=== PATIENT | female | born 1930 | race Caucasian/White ===

== ENCOUNTER 2016-07-10 08:00 | Outpatient (CLI) | payer MEDICARE, OTHER | END 2016-07-10 23:59 | DX: I10 Essential (primary) hypertension (principal); E03.9 Hypothyroidism, unspecified; E78.2 Mixed hyperlipidemia; Z79.899 Other long term (current) drug therapy ==

== ENCOUNTER 2016-08-22 08:17 | Emergency (ER) | payer MEDICARE, OTHER ==
[2016-08-22] MEDS ORDERED: IOPAMIDOL-300 50 ML VIAL IVP ONE (11:19)
== END 2016-08-22 12:34 | disposition home or self-care (01) ==
DX: B02.9 Zoster without complications (principal); I44.7 Left bundle-branch block, unspecified; R94.31 Abnormal electrocardiogram [ECG] [EKG]; I10 Essential (primary) hypertension; E03.9 Hypothyroidism, unspecified

== ENCOUNTER 2017-02-08 14:01 | Outpatient (CLI) | payer MEDICARE, OTHER | END 2017-02-08 14:02 | disposition critical access hospital (66) | LOC: EMS 14:01 | PROVIDERS: ATTEND Surgery | DX: R55 Syncope and collapse (principal) | CPT/HCPCS: A0425; A0427 ==

== ENCOUNTER 2017-02-08 14:16 | Observation (INO) | payer MEDICARE, OTHER ==
[2017-02-08] MEDS ORDERED: SODIUM CHLORIDE 0.9% 1,000 ML IV ONE (14:41)
[2017-02-08 14:58] LABS: BASOPHILS % (AUTO) 0.4 %; EOSINOPHILS # (AUTO) 0.2 10^3/uL (0.0-0.7); EOSINOPHILS % (AUTO) 1.7 %; HCT - HEMATOCRIT 44.5 % (37.0-47.0); HGB - HEMOGLOBIN 14.9 g/dL (12.0-16.0); LYMPHOCYTES % (AUTO) 38.8 %; MEAN CORPUSCULAR HGB CONC 33.4 g/dL (32.0-36.0); MEAN CORPUSCULAR VOLUME 95.7 fL (81.0-99.0); MONOCYTES # (AUTO) 0.9 10^3/uL (0.0-1.0); MONOCYTES % (AUTO) 8.9 %; NEUTROPHILS # (AUTO) 5.2 10^3/uL (1.5-6.6); NEUTROPHILS % (AUTO) 50.2 %; RED BLOOD COUNT 4.64 10^6/uL (4.20-5.40); RED CELL DISTRIBUTION WIDTH 13.5 % (12.0-15.0); UNCORRECTED WHITE BLOOD COUNT 10.3 x10^3/uL; WHITE BLOOD COUNT 10.3 x10^3/uL (4.8-10.8)
[2017-02-08 15:16] LABS: ALBUMIN/GLOBULIN RATIO 1.4 (1.0-2.2); BILIRUBIN,TOTAL 0.9 mg/dL (0.2-1.0); CALCIUM 9.5 mg/dL (8.5-10.3); POTASSIUM 4.4 mmol/L (3.5-5.0); TOTAL PROTEIN 7.1 g/dL (6.7-8.2)
--- NOTE | 2017-02-08 15:30 | ED Physician Documentation ---
PD HPI SYNCOPE - Stated complaint Stated Complaint: SYNCOPE - Chief complaint Chief Complaint: General - History obtained from History obtained from: Patient, Family, EMS - History of Present Illness Witnessed: Witnessed Timing - onset: Today Duration: Minutes (1) Preceding symptoms: Light headed, Generalized weakness. No: Headache, Vision changes, Chest pain, Palpitations, Diaphoresis, Dyspnea, Abdominal pain, Nausea / vomiting Associated symptoms: No: Seizure, Incontinant of urine, Incontinant of stool, Headache, Vision changes, Chest pain, Palpitations, Diaphoresis Contributing factors: No: Recent med change, Decreased PO intake, Noxious stimulae, Emotional upset, Just stood up, Exertion Injury occurred: Fell, Unknown (slight urinary incontinence). No: Head injury, Neck injury, Bit tongue Pain level max: 0 Pain level now: 0 Similar symptoms before: Has not had sx before Recently seen: Not recently seen - Additional information Additional information: found to be hypotensive with EMS. 86/52 upon arrival. Review of Systems Ten Systems: 10 systems reviewed and negative Constitutional: denies: Fever, Chills Ears: denies: Ear pain Nose: denies: Rhinorrhea / runny nose, Congestion Throat: denies: Sore throat Cardiac: denies: Chest pain / pressure, Palpitations Respiratory: denies: Cough GI: denies: Nausea, Vomiting, Diarrhea : denies: Dysuria, Frequency, Hesitancy Skin: denies: Rash Musculoskeletal: denies: Neck pain, Back pain Neurologic: denies: Focal weakness, Numbness, Confused, Altered mental status, Headache PD PAST MEDICAL HISTORY - Past Medical History Cardiovascular: Hypertension, Arrhythmia Respiratory: None Neuro: None Endocrine/Autoimmune: HyPOthyroidism GI: None 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 : None HEENT: Glaucoma Psych: None Musculoskeletal: None Derm: None - Past Surgical History Past Surgical History: Yes General: Colonoscopy HEENT: Cataracts - Present Medications Home Medications: Ambulatory Orders Medication Instructions Recorded Confirmed Brimonidine Tartrate [Alphagan P] 1 drops EACHEYE TID 05/05/13 02/09/17 Latanoprost [Xalatan] 1 drops EACHEYE QPM 05/05/13 02/09/17 Levothyroxine [Synthroid] 100 mcg PO QDAC 05/05/13 02/08/17 Lisinopril 20 mg PO DAILY 05/05/13 02/08/17 Aspirin Chewable [St Del 162 mg PO DAILY tablet 02/09/17 Aspirin] Dorzolamide/Timolol Ophth Soln 1 drops LEFTEYE BID 02/09/17 02/09/17 [Cosopt] - Allergies Allergies/Adverse Reactions: Allergies Allergy/AdvReac Type Severity Reaction Status Date / Time Latex, Natural Rubber Allergy Severe Edema Verified 08/22/16 08:25 Sulfa (Sulfonamide Allergy Intermediate Hives Verified 08/22/16 08:25 Antibiotics) ciprofloxacin [From Cipro] Allergy Rash Verified 08/22/16 08:25 ciprofloxacin HCl * Allergy Rash Verified 08/22/16 08:25 [From Cipro] valacyclovir [From Valtrex] Allergy Unknown Verified 02/08/17 14:23 - Social History Does the pt smoke?: No Smoking Status: Never smoker Does the pt drink ETOH?: Yes Does the pt have substance abuse?: No - Immunizations Immunizations are current?: Yes PD ED PE NORMAL - Vitals Vital signs reviewed: Yes - General General: Alert and oriented X 3, No acute distress, Well developed/nourished - HEENT HEENT: Atraumatic, PERRL, EOMI, Ears normal, Moist mucous membranes, Pharynx benign - Neck Neck: Supple, no meningeal sign, No bony TTP - Cardiac Cardiac: RRR, Strong equal pulses - Respiratory Respiratory: No respiratory distress, Clear bilaterally - Abdomen Abdomen: Soft, Non tender, Non distended - Back Back: No spinal TTP - Derm Derm: Warm and dry - Extremities Extremities: No edema, No calf tenderness / cord - Neuro Neuro: Alert and oriented X 3, box maker paperboard 2-12 intact, No motor deficit, No sensory deficit, Normal speech - Psych Psych: Normal mood, Normal affect Results - Vitals Vitals: Vital Signs - 24 hr 02/08/17 02/08/17 14:20 16:42 Temperature 36.5 C 36.5 C Heart Rate 95 61 Respiratory 18 15 Rate Blood Pressure 113/68 148/67 H O2 Saturation 90 L 100 Oxygen O2 Source Room air - EKG (time done) 1424 Rate: Rate (enter#) (73) Rhythm: NSR Intervals: Normal KS, LBBB Compare to prior EKG: Unchanged from prior EKG (08/22/16) - Labs Labs: Laboratory Tests 02/08/17 02/08/17 02/08/17 14:53 14:53 14:53 WBC 10.3 RBC 4.64 Hgb 14.9 Hct 44.5 MCV 95.7 MCH 32.0 H MCHC 33.4 RDW 13.5 Plt Count 213 MPV 8.0 Neut # 5.2 Lymph # 4.0 H Anson # 0.9 Eos # 0.2 Baso # 0.0 Absolute Nucleated RBC 0.00 Nucleated RBC % 0.0 Sodium 135 Potassium 4.4 Chloride 98 L Carbon Dioxide 26 Anion Gap 11.0 BUN 16 Creatinine 1.0 Estimated GFR (MDRD) 52 L Glucose 110 H Calcium 9.5 Magnesium Total Bilirubin 0.9 AST 19 ALT 15 Alkaline Phosphatase 62 Troponin I < 0.04 Total Protein 7.1 Albumin 4.2 Globulin 2.9 Albumin/Globulin Ratio 1.4 Triglycerides Cholesterol LDL Cholesterol, Calc VLDL Cholesterol HDL Cholesterol LDL/HDL Ratio Cholesterol/HDL Ratio Lipase 45 TSH Free T4 Free T3 pg/mL 02/08/17 02/08/17 02/08/17 14:53 14:53 14:53 WBC RBC Hgb Hct MCV MCH MCHC RDW Plt Count MPV Neut # Lymph # Anson # Eos # Baso # Absolute Nucleated RBC Nucleated RBC % Sodium Potassium Chloride Carbon Dioxide Anion Gap BUN Creatinine Estimated GFR (MDRD) Glucose Calcium Magnesium 2.1 Total Bilirubin AST ALT Alkaline Phosphatase Troponin I Total Protein Albumin Globulin Albumin/Globulin Ratio Triglycerides Cholesterol LDL Cholesterol, Calc VLDL Cholesterol HDL Cholesterol LDL/HDL Ratio Cholesterol/HDL Ratio Lipase TSH 2.02 Free T4 Free T3 pg/mL 3.10 02/08/17 02/08/17 14:53 14:53 WBC RBC Hgb Hct MCV MCH MCHC RDW Plt Count MPV Neut # Lymph # Anson # Eos # Baso # Absolute Nucleated RBC Nucleated RBC % Sodium Potassium Chloride Carbon Dioxide Anion Gap BUN Creatinine Estimated GFR (MDRD) Glucose Calcium Magnesium Total Bilirubin AST ALT Alkaline Phosphatase Troponin I Total Protein Albumin Globulin Albumin/Globulin Ratio Triglycerides 101 Cholesterol 241 H LDL Cholesterol, Calc 139 H VLDL Cholesterol 20 HDL Cholesterol 82 LDL/HDL Ratio 1.7 Cholesterol/HDL Ratio 2.9 Lipase TSH Free T4 1.21 Free T3 pg/mL - Rads (name of study) cxr Radiology: Prelim report reviewed, EMP read contemporaneously, See rad report ( Cardiomegaly with thoracic aortic tortuosity and calcification. 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 This was while she was standing making lunch in the kitchen. Did not occur after exertion or standing. Ate and drank normally today including breakfast. Daughter was visiting from out of town. Has never had syncope before. She was hypotensive upon arrival with EMS, but this resolved quickly. We will place the patient in observation for further care including continued telemetry monitoring. I discussed the case with Dr. Alvarez, hospitalist who accepts. This document was made in part using voice recognition software. While efforts are made to proofread this document, sound alike and grammatical errors may occur. Departure - Departure Disposition: ED Place in Observation Clinical Impression: Syncope Qualifiers: Syncope type: unspecified Qualified Code(s): R55 - Syncope and collapse Condition: Good Discharge Date/Time: 02/08/17 17:47
--- NOTE | 2017-02-08 16:24 | XRAY Preliminary Report ---
Exam: XR CHEST 1 VIEW IMPRESSION: 1. There is cardiomegaly with thoracic aortic tortuosity and calcification. 2. No acute intrathoracic plain film abnormality. [facility] SITE ID: [id number]
--- NOTE | 2017-02-08 16:26 | XRAY Report ---
EXAM: CHEST RADIOGRAPHY EXAM DATE: 02/08/2017 04:05 PM. CLINICAL HISTORY: Syncope. COMPARISON: 08/22/2016. TECHNIQUE: 1 view. FINDINGS: Lungs/Pleura: Lungs are well-expanded. There is stable reticular opacity within the mid and lower roxie gs. No evidence of acute consolidation or effusion. No pneumothorax. Mediastinum: There is cardiomegaly with thoracic aortic tortuosity. Other: None. IMPRESSION: 1. There is cardiomegaly with thoracic aortic tortuosity and calcification. 2. No acute intrathoracic plain film abnormality. [facility] Referring Provider Line: [phone] SITE ID: [id number]
[2017-02-08] MEDS ORDERED: MORPHINE 2 MG/ML SYRINGE IVP PRN (17:25)
[2017-02-08] MEDS ORDERED: SODIUM CHLORIDE FLUSH 0.9% 10 ML SYRINGE IVP PRN (17:25)
[2017-02-08] MEDS ORDERED: ONDANSETRON ODT 4 MG TABLET TL PRN (17:25)
[2017-02-08 18:22] LABS: BILIRUBIN,URINE NEGATIVE (NEGATIVE)
[2017-02-08 18:22] LABS: CHOL/HDL RATIO 2.9 (<4.4); CHOLESTEROL 241 mg/dL; HDL CHOLESTEROL 82 mg/dL; LDL/HDL RATIO 1.7 (<4.4); TRIGLYCERIDES 101 mg/dL; VLDL CHOLESTEROL 20 mg/dL
[2017-02-08 18:23] LABS: UA w/ MICROSCOPIC CHARGE YES
[2017-02-08 18:30] LABS: UR CULTURE IF IND NOT INDICATED; WBC,URINE >25 /HPF (0-5)
[2017-02-08] MEDS: ASPIRIN CHEW 81 MG TABLET PO SCH (19:09)
--- NOTE | 2017-02-08 19:17 | HISTORY & PHYSICAL EXAMINATION ---
DATE OF ADMISSION: 02/08/2017 CHIEF COMPLAINT: Syncope. HISTORY OF PRESENT ILLNESS: The patient is a very pleasant 86-year-old female who presented to the ER today with a complaint of dizziness and weakness after she was making lunch today. The patient has a significant medical history that does include hypertension, hypothyroidism and glaucoma. The patient states that she was in her usual state of health when, after making lunch this morning, she felt diz zy and weak. She went over to her kitchen table to sit down. The next thing she remembers is standing up and she fell to the ground. the patient described it as "I was just sitting in the chair at the t able and I slid down out of my chair." The patient's daughter happened to be in the kitchen at the [facility] time when the event occurred. The daughter states that mother had stood up and then all of a sudde n, passed out, sat down onto the hospital floor. She became incontinent of urine. When she came aroun d, which was within less than about 10 seconds per the daughter, she noticed her mom was slightly con fused. She states she did not notice any facial droop or slurring of speech. She called 911 for the [employer]. When the paramedics got there, they took her blood pressure and it was 86 systolic. The pa marely states that she had had some coffee for breakfast. She had taken all her a.m. medications but h ad not eaten much that morning. Her blood sugar check was within normal limits. The patient states th at she had similar symptoms back in August, which they thought she might have had a heart problem at gideon t time. She did have an arrhythmia, which the daughter describes as PVCs and some heart palpitations. She cannot remember whether she had an echocardiogram at that time. The patient takes only Synthroid and glaucoma medication and lisinopril. By the time she got to the hospital with the paramedics, she was completely asymptomatic. She has not had any lightheadedness or dizziness since being in the ER. However, given her general history, age, and loss of consciousness even for a few moments, we felt i t was better to bring the patient in to observe overnight and do additional diagnostic studies. ALLERGIES 1. LATEX. 2. NATURAL RUBBER. 3. SULFA. HOME MEDICATIONS 1. Alphagan 10 ml eyedrops. 2. Xalatan 2.5 mL drops for the eyes. 3. Synthroid 100 mcg p.o. in the morning. 4. Lisinopril 20 mg p.o. daily. 5. Timolol 10 mL in both eyes in the morning. PAST MEDICAL HISTORY: Includes 1. Hypertension. 2. Arrhythmia. 3. Hypothyroidism. 4. Glaucoma. PAST SURGICAL HISTORY 1. Colonoscopy. 2. Cataract surgery. PAST SOCIAL HISTORY: The patient never smoked. She does occasionally drink a glass of wine. She does not use any illicit substances. She does live at home with her daughter. PAST FAMILY HISTORY: The patient states that her mother and father are both . Both parents pedraza d heart problems. She does have a daughter who is in generally good health. REVIEW OF SYSTEMS: Ten systems have been reviewed. She denies fever, chills, ear pain, congestion, ch est pain or pressure, denies nausea, vomiting, diarrhea, or dysuria. She was incontinent of urine wit h this particular episode, otherwise normally she is not. She denies rashes, neck pain or back pain. PHYSICAL EXAMINATION CONSTITUTIONAL: She was alert, in no acute distress. EYES: Pupils were equal, round and react to light and accommodation. Conjunctivae and sclerae were no nicteric, not injected. ENT: Nares were patent. No nasal discharge. Oropharynx with no masses, exudates or lesions. Mucous me mbranes are moist. NECK: Supple. There was no thyromegaly. CARDIOVASCULAR: S1, S2 were noted. No gallops, murmurs or rubs. Normal PMI. No JVD. RESPIRATORY: Breath sounds were clear and equal bilaterally to auscultation and percussion. No retrac tions or nasal flaring. No increased work of breathing. GASTROINTESTINAL: Abdomen was soft, nontender. Bowel sounds were present in 4 quadrants. No guarding or rebound. MUSCULOSKELETAL/EXTREMITIES: No cyanosis. Pulses were palpable. Able to move upper and lower extremit ies without difficulty. Motor was 5/5 bilaterally. HEMATOLOGIC: No active bleeding. She is hemodynamically stable. LYMPHATICS: No cervical, axillary, or supraclavicular lymphadenopathy was noted. SKIN: Warm, dry, intact. Normal turgor. No evidence of rash, lesions, or cellulitis. VITAL SIGNS: Temperature is 36.5, heart rate 95, respirations 18, blood pressure 113/68. Oxygen satur ation was 100% on room air. GENITOURINARY: No CVA tenderness. No mass palpated. No bladder distention. NEUROLOGIC: She is alert. GCS 15. Cranial nerves 2 through 7 were grossly intact. Sensory was intact. LABORATORY AND DIAGNOSTIC DATA: I personally reviewed all laboratory and diagnostic data in the medic al record. The results are as follows: EKG showed normal sinus rhythm with a normal NC with a left bundle branch block. It was unchanged fro m the prior EKG that was done in August of this year. LABORATORY DATA: Abnormalities include MCH which is 32, glucose 110. Troponin was negative at 0.04. C hloride was 98. Sodium 135, potassium 4.4. Creatinine was 1. BUN 16. ASSESSMENT AND PLAN 1. Acute syncopal episode with collapse. a. Plan: The patient was admitted to observation. Will request an echocardiogram and carotid Doppler study. Aspirin was given 162 mg p.o. Troponins have been obtained and will trend cardiac markers. EKG in a.m. We will continue to monitor the patient on telemetry. Lipid profile has been requested. Fall precautions and physical and occupational therapy assessments prior to discharge. Neurologic checks q.6 hours or more frequently as needed. 2. Hypothyroidism, unspecified. a. Continue with Synthroid therapy. Will get thyroid panel to rule out any abnormalities of the thyro id at this time that could be causing her lightheadedness and dizziness. The patient denies any dry s kin, palpitations, diarrhea or constipation. 3. Essential benign hypertension with unspecified arrhythmia. a. We will continue to monitor the patient on Telemetry and trend cardiac markers. IV fluids, normal saline for gentle hydration since the patient was slightly hypotensive upon arrival to the ER. Will c ontinue to monitor the blood pressure with vital signs per protocol. The patient to continue on lisin opril 20 mg p.o. daily. 4. Glaucoma, chronic. a. Will continue the patient on her eyedrops, Xalatan, Alphagan and Timolol as prescribed, home dosag es. 5. Deep venous thrombosis prophylaxis with Lovenox and SCDs. STATUS: THE PATIENT IS DNR/DNI STATUS. RISK ASSESSMENT/DISPOSITION: The patient is high risk for worsening comorbidities. She will require a dditional diagnostics and IV medications with high risk for toxicity. [facility]. TIME: Time spent on assessment and admission was 43 minutes. JOB #: [id number] EXT JOB #:[id number]
--- NOTE | 2017-02-08 19:42 | Ultrasound Preliminary Report ---
Exam: US CAROTID DOPPLER COMPLETE IMPRESSION: 1. Atherosclerotic calcification without hemodynamically significant stenosis bilateral carotid arter ies. 2. Arrhythmia noted on multiple tracings. Validated velocity measurements with angiographic measurements and velocity criteria are extrapolated from diameter data as defined by the Society of Radiologists in Ultrasound Consensus Conference Radi ology 2003; 229;340-346. [facility] SITE ID: [id number]
--- NOTE | 2017-02-08 19:53 | Ultrasound Report ---
EXAM: CAROTID DOPPLER ULTRASOUND EXAM DATE: 02/08/2017 07:20 p.m. CLINICAL HISTORY: Syncope. COMPARISON: None. TECHNIQUE: Real-time sonographic vascular imaging was performed by the gluing machine offbearer through the caroti d arterial system with a linear transducer utilizing color-flow, Doppler flow and spectral analysis. Multiple field marketing representative static images were saved for review. FINDINGS: There is a moderate amount of atherosclerotic plaque without hemodynamically significant st enosis. Arrhythmias noted on several tracings. RIGHT: RCCA Prox: PSV 88.2 cm/sec. RCCA Dist: PSV 56.8 cm/sec, EDV 14.1 cm/sec. RECA: PSV 120 cm/sec. R Bulb: PSV 92.5 cm/sec, EDV 10.3 cm/sec, ICA/CCA ratio 0.6. BECCA Prox: PSV 51.4 cm/sec, EDV 15.3 cm/sec, ICA/CCA ratio 1.1. BECCA Mid: PSV 64.6 cm/sec, EDV 14.9 cm/sec, ICA/CCA ratio 0.9. BECCA Dist: PSV 72.7 cm/sec, EDV 21.3 cm/sec, ICA/CCA ratio 0.8. RVA: PSV 43.7 cm/sec. RVA flow direction: Antegrade. LEFT: LCCA Prox: PSV 78.2 cm/sec. LCCA Dist: PSV 42.9 cm/sec, EDV 8.9 cm/sec. LECA: PSV 147.4 cm/sec. L Bulb: PSV 34.6 cm/sec, EDV 10.5 cm/sec, ICA/CCA ratio 1.3. LICA Prox: PSV 38.7 cm/sec, EDV 12.3 cm/sec, ICA/CCA ratio 1.1. LICA Mid: PSV 43.4 cm/sec, EDV 14.0 cm/sec, ICA/CCA ratio 1.0. LICA Dist: PSV 75.2 cm/sec, EDV 17.0 cm/sec, ICA/CCA ratio 0.6. LVA: PSV 19.0 cm/sec. LVA flow direction: Antegrade. Other: None. IMPRESSION: 1. Atherosclerotic calcification without hemodynamically significant stenosis in the bilateral caroti d arteries. 2. Arrhythmia noted on multiple tracings. Validated velocity measurements with angiographic measurements and velocity criteria are extrapolated from diameter data as defined by the Society of Radiologists in Ultrasound Consensus Conference Radi ology 2003; 229;340-346. [facility] Referring Provider Line: [phone] SITE ID: [id number]
[2017-02-08] MEDS: SODIUM CHLORIDE FLUSH 0.9% 10 ML SYRINGE IVP SCH (23:20)
[2017-02-08] MEDS: SODIUM CHLORIDE 0.9% 1,000 ML IV SCH (23:25)
[2017-02-09] MEDS: SODIUM CHLORIDE FLUSH 0.9% 10 ML SYRINGE IVP SCH (05:32)
[2017-02-09] MEDS ORDERED: LEVOTHYROXINE 100 MCG TABLET PO SCH (07:00)
[2017-02-09 08:05] LABS: BASOPHILS % (AUTO) 0.5 %; EOSINOPHILS # (AUTO) 0.2 10^3/uL (0.0-0.7); HCT - HEMATOCRIT 40.9 % (37.0-47.0); HGB - HEMOGLOBIN 13.8 g/dL (12.0-16.0); LYMPHOCYTES # (AUTO) 3.8 10^3/uL (1.5-3.5); LYMPHOCYTES % (AUTO) 47.1 %; MEAN CORPUSCULAR HEMOGLOBIN 32.1 pg (27.0-31.0); MEAN CORPUSCULAR HGB CONC 33.8 g/dL (32.0-36.0); MEAN CORPUSCULAR VOLUME 94.8 fL (81.0-99.0); MEAN PLATELET VOLUME 7.9 fL (7.9-10.8); MONOCYTES # (AUTO) 0.8 10^3/uL (0.0-1.0); MONOCYTES % (AUTO) 9.6 %; NEUTROPHILS # (AUTO) 3.3 10^3/uL (1.5-6.6); NEUTROPHILS % (AUTO) 40.8 %; NUCLEATED RED BLOOD CELLS AUTO 0.1 /100WBC; RED BLOOD COUNT 4.31 10^6/uL (4.20-5.40); RED CELL DISTRIBUTION WIDTH 13.6 % (12.0-15.0); UNCORRECTED WHITE BLOOD COUNT 8.1 x10^3/uL; WHITE BLOOD COUNT 8.1 x10^3/uL (4.8-10.8)
[2017-02-09 08:17] LABS: ALBUMIN/GLOBULIN RATIO 1.5 (1.0-2.2); BILIRUBIN,TOTAL 0.9 mg/dL (0.2-1.0); CALCIUM 8.7 mg/dL (8.5-10.3); CREATININE 0.7 mg/dL (0.4-1.0); TOTAL PROTEIN 6.3 g/dL (6.7-8.2)
--- NOTE | 2017-02-09 08:48 | DISCHARGE SUMMARY ---
Discharge Summary Admit Date: 02/08/17 Discharge Date: 02/09/17 Discharging Provider: ANGEL MCHUGH APRN Primary Care Provider: NANCY PARRY MD Code Status: Do Not Attempt Resuscitation Condition at Discharge: Good Discharge Disposition: 01 Home, Self Care Discharge Facility Name: HOME - DIAGNOSES Admission Diagnoses: 1. SYNCOPE AND COLLAPSE 2. HYPERCHOLESTEREMIA 3. ESSENTIAL BENIGN HYPERTENSION 4. HYPOTHYROIDISM, UNSPECIFIED Discharge Diagnoses with Status of Each Condition: 1. SYNCOPE AND COLLAPSE WITH UNSPECIFIED HEART ARRHYTHMIA 2. ACUTE ON CHRONIC HYPERCHOLESTEREMIA 3. ESSENTIAL BENIGN HYPERTENSION 4. HYPOTHYROIDISM, UNSPECIFIED - HPI History of Present Illness: HISTORY OF PRESENT ILLNESS: The patient is a very pleasant 86-year-old female who presented to the ER today with a complaint of dizziness and weakness after she was making lunch today. The patient has a significant medical history that does include hypertension, hypothyroidism and glaucoma. The patient states that she was in her usual state of health when, after making lunch this morning, she felt dizzy and weak. She went over to her kitchen table to sit down. The next thing she remembers is standing up and she fell to the ground. the patient described it as "I was just sitting in the chair at the table and I slid down out of my chair." The patient's daughter happened to be in the kitchen at the same time when the event occurred. The daughter states that mother had stood up and then all of a sudden, passed out, sat down onto the hospital floor. She became incontinent of urine. When she came around, which was within less than about 10 seconds per the daughter, she noticed her mom was slightly confused. She states she did not notice any facial droop or slurring of speech. She called 911 for the paramedics. When the paramedics got there, they took her blood pressure and it was 86 systolic. The patient states that she had had some coffee for breakfast. She had taken all her a.m. medications but had not eaten much that morning. Her blood sugar check was within normal limits. The patient states that she had similar symptoms back in August, which they thought she might have had a heart problem at that time. She did have an arrhythmia, which the daughter describes as PVCs and some heart palpitations. She cannot remember whether she had an echocardiogram at that time. The patient takes only Synthroid and glaucoma medication and lisinopril. By the time she got to the hospital with the paramedics, she was completely asymptomatic. She has not had any lightheadedness or dizziness since being in the ER. However, given her general history, age, and loss of consciousness even for a few moments, we felt it was better to bring the patient in to observe overnight and do additional diagnostic studies. - CONSULTS | PROCEDURES Consultations: NONE Procedures: ECHOCARDIOGRAM CAROTID DOPPLER BILATERAL - HOSPITAL COURSE Hospital Course: PATIENT WAS ADMITTED FOR SYNCOPE AND RULE OUT POSSIBLE CARDIAC ETIOLOGY. 1. SYNCOPE AND COLLAPSE WITH UNSPECIFIED HEART ARRHYTHMIA PATIENT ADMITTED AND HAD A CAROTID DOPPLER OF THE BILATERAL ARTERIES AND WAS NOTED TO HAVE NO SIGNIFICANT STENOSIS BILATERALLY sHE DID HAVE AN ARRHYMIA NOTED ON MULTIPLE TRACINGS AND WILL NEED FOLLOWUP WITH CARDIOLOGY OUTPATIENT. SHE REMAINED SYMPTOMATIC WITH NO CHEST PAIN OR SHORTNESS OF BREATH. SHE HAD NO OTHER SYNCOPAL EVENTS. 2. ACUTE ON CHRONIC HYPERCHOLESTEREMIA PATIENT IS NOT ON ANY CHOLESTEROL MEDICATIONS SINCE SHE DID NOT WANT TO TAKE THEM. SHE WAS GIVEN AN ASPIRIN AND RECOMMENDED DIET CHANGE AND GIVEN NIACIN AND OMEGA 3 TO TAKE. ENCOURAGED EXERCISE AND TO SEE PCP FOR FURTHER INTERVENTIONS REGARDING HYPERLIPIDEMIA 3. ESSENTIAL BENIGN HYPERTENSION PATIENT CONTINUED ON LISINOPRIL HOME DOSAGE AND WAS ON TELEMETRY MONITORING. CARDIAC MARKERS WERE TRENDED AND REPEAT EKG PRIOR TO GOING HOME 4. HYPOTHYROIDISM, UNSPECIFIED PATIENT HAD A THYROID PANEL COMPLETED AND WAS NORMAL PRIOR TO DISCHARGE. SHE REMAINED ON HER THYROID MEDICATION HOME DOSAGE DVT PROPHYLAXIS WAS WITH LOVENOX AND SCD SHE WAS TAKEN HOME WITH HER DAUGHTER AND . INSTRUCTED TO SEE PCP WITHIN ONE WEEK AND REFERRAL TO CARDIOLOGY. - ALLERGIES Allergies/Adverse Reactions: Allergies Allergy/AdvReac Type Severity Reaction Status Date / Time Latex, Natural Rubber Allergy Severe Edema Verified 08/22/16 08:25 Sulfa (Sulfonamide Allergy Intermediate Hives Verified 08/22/16 08:25 Antibiotics) ciprofloxacin [From Cipro] Allergy Rash Verified 08/22/16 08:25 ciprofloxacin HCl * Allergy Rash Verified 08/22/16 08:25 [From Cipro] valacyclovir [From Valtrex] Allergy Unknown Verified 02/08/17 14:23 - MEDICATIONS Home Medications: Ambulatory Orders Medication Instructions Recorded Confirmed Brimonidine Tartrate [Alphagan P] 10 ml OP .BINA 05/05/13 02/08/17 Latanoprost [Xalatan] 2.5 ml OP .FREQ 05/05/13 02/08/17 Levothyroxine [Synthroid] 100 mcg PO QDAC 05/05/13 02/08/17 Lisinopril 20 mg PO DAILY 05/05/13 02/08/17 Timolol [Betimol] 10 ml OP .FREQ 05/05/13 02/08/17 - PHYSICAL EXAM AT DISCHARGE General Appearance: positive: No acute distress, Alert Eyes Bilateral: positive: Normal inspection, PERRL, EOMI ENT: positive: ENT inspection nml, Pharynx nml, No signs of dehydration Neck: positive: Nml inspection, Thyroid nml, No JVD, Trachea midline Respiratory: positive: Chest non-tender, No respiratory distress, Breath sounds nml Cardiovascular: positive: No gallop, Irregularly irregular. negative: JVD present Peripheral Pulses: positive: 2+ Abdomen: positive: Non-tender, No organomegaly, Nml bowel sounds, No distention Back: positive: Nml inspection Skin: positive: Color nml, No rash, Warm, Dry Extremities: positive: Non-tender, Full ROM, Nml appearance, No pedal edema Neurologic/Psychiatric: positive: Oriented x3, CN's nml (2-12), Motor nml, Sensation nml, Mood/affect nml - LABS Result Diagrams: 02/09/17 07:58 02/09/17 07:58 Other Lab Results: Abnormal Lab Results 02/08/17 02/08/17 02/08/17 14:53 14:53 14:53 MCH 32.0 pg H pg (27.0-31.0) Lymph # 4.0 10^3/uL H 10^3/uL (1.5-3.5) Chloride 98 mmol/L L mmol/L (101-111) Estimated GFR (MDRD) 52 L (>89) Glucose 110 mg/dL H mg/dL (70-100) Total Protein Cholesterol 241 mg/dL H mg/dL ( - 199) LDL Cholesterol, Calc 139 mg/dL H mg/dL ( - 129) Urine Nitrite Ur Leukocyte Esterase Urine WBC Ur Squamous Epith Cells Urine Bacteria 02/08/17 02/09/17 02/09/17 18:00 07:58 07:58 MCH 32.1 pg H pg (27.0-31.0) Lymph # 3.8 10^3/uL H 10^3/uL (1.5-3.5) Chloride Estimated GFR (MDRD) 79 L (>89) Glucose Total Protein 6.3 g/dL L g/dL (6.7-8.2) Cholesterol LDL Cholesterol, Calc Urine Nitrite POSITIVE H (NEGATIVE) Ur Leukocyte Esterase MODERATE H (NEGATIVE) Urine WBC >25 /HPF H /HPF (0-5) Ur Squamous Epith Cells MANY Squamous H (<= Few) Urine Bacteria Many /HPF H /HPF (None Seen) - DIAGNOSTIC IMAGING Diagnostic Imaging Results: Final report reviewed - FOLLOW UP Follow Up: PATIENT WAS INSTRUCTED TO SEE PCP AND CARDIOLOGY APPT WITH REFERRAL RECOMMENDED. SHE UNDERSTOOD AND WAS ABLE TO BE SAFELY DISCHARGED HOME. SHE WAS NOT SYMPTOMATIC AT DISCHARGE AND VITALS WERE STABLE - TIME SPENT Time Spent in Discharge (Minutes): 45 (FOR DICHARGE PLANNING AND ASSESSMENT)
[2017-02-09] MEDS ORDERED: ENOXAPARIN 40 MG/0.4 ML SYRINGE SUBQ SCH (09:00)
[2017-02-09] MEDS ORDERED: BRIMONIDINE 0.1% EACHEYE SCH (09:00)
[2017-02-09] MEDS ORDERED: LISINOPRIL 20 MG TABLET PO SCH (09:00)
[2017-02-09] MEDS ORDERED: DORZOLAMIDE/TIMOLOL OPHTH DROPS LEFTEYE SCH ×3 (09:00)
[2017-02-09] MEDS ORDERED: POLYETHYLENE GLYCOL 3350 17 GM PACKET PO SCH (09:00)
[2017-02-09] MEDS: ASPIRIN CHEW 81 MG TABLET PO SCH (09:34)
[2017-02-09] MEDS: SODIUM CHLORIDE 0.9% 1,000 ML IV SCH (09:37)
--- NOTE | 2017-02-09 11:40 | Discharge Plan ---
Discharge Plan Disposition: Home, Self Care Condition: Good Diet: Cardiac Activity Restrictions: No Restrictions Shower Restrictions: No Driving Restrictions: No Assistance Devices: Cane Weight Bearing: Full Weight Instruction Topics: Syncope Causes, Syncope Tx Prevent Additional Instructions or Follow Up instructions: PLEASE CONTINUE TO TAKE ALL HOME MEDICATIONS PRESCRIBED. YOU HAVE BEEN GIVEN PRESCRIPTION FOR NIACIN AND OMEGA THREE TO TAKE. ALTHOUGH YOU NEED TO LOWER YOUR BAD CHOLESTEROL, DIET AND EXERCISE CAN HELP. SINCE YOU DONT WANT TO TAKE A STATIN, OMEGA 3 AND NIACIN ARE NATURAL AND CAN HELP TO LOWER CHOLESTEROL. PLEASE TAKE AN ASPIRIN 162MG DAILY AND CHEW IT. BABY ASPIRIN IS BEST PLEASE SEE YOUR PRIMARY CARE PROVIDER WITHIN ONE WEEK OF DISCHARGE AND YOU NEED A REFERRAL TO CARDIOLOGY. RETURN TO THE ER IF SYMPTOMS WORSEN OR CALL 911 IF YOU HAVE CHEST PAIN OR SHORTNESS OF BREATH No Smoking: If you smoke, Please STOP! Call for help. Follow-up with: Jak Garcia MD [Primary Care Provider] -
[2017-02-09 13:57] VITALS: BP 155/92
[2017-02-09] MEDS ORDERED: LATANOPROST 0.005% OPHTH DROPS EACHEYE SCH ×3 (21:00)
== END 2017-02-09 14:01 | disposition home or self-care (01) ==
LOC: EDUNIT# → ED 14:16 → OBS 17:00
PROVIDERS: ADMIT Nurse Practitioner; ATTEND Nurse Practitioner
DX: R55 Syncope and collapse (principal); I49.9 Cardiac arrhythmia, unspecified; E78.00 Pure hypercholesterolemia, unspecified; I10 Essential (primary) hypertension; E03.9 Hypothyroidism, unspecified; H40.9 Unspecified glaucoma; Z71.3 Dietary counseling and surveillance; Z79.899 Other long term (current) drug therapy; Z66 Do not resuscitate
CPT/HCPCS: 36415; 71010; 80053; 80061; 81001; 83690; 83735; 84439; 84443; 84481; 84484; 85025; 93005; 93306; 93880; 96360; 96361; 96372; 99284; 99285; A9270; G0378; J1650; 81003; 87086

== ENCOUNTER 2017-07-15 09:00 | Outpatient (CLI) | payer MEDICARE, OTHER ==
[2017-07-15 12:58] LABS: BASOPHILS # (AUTO) 0.1 10^3/uL (0.0-0.1); BASOPHILS % (AUTO) 1.1 %; EOSINOPHILS # (AUTO) 0.2 10^3/uL (0.0-0.7); HGB - HEMOGLOBIN 15.8 g/dL (12.0-16.0); LYMPHOCYTES # (AUTO) 3.9 10^3/uL (1.5-3.5); LYMPHOCYTES % (AUTO) 48.1 %; MEAN CORPUSCULAR HEMOGLOBIN 32.2 pg (27.0-31.0); MEAN CORPUSCULAR HGB CONC 33.5 g/dL (32.0-36.0); MEAN CORPUSCULAR VOLUME 96.2 fL (81.0-99.0); MEAN PLATELET VOLUME 8.9 fL (7.9-10.8); MONOCYTES # (AUTO) 0.7 10^3/uL (0.0-1.0); MONOCYTES % (AUTO) 8.1 %; NEUTROPHILS # (AUTO) 3.2 10^3/uL (1.5-6.6); NEUTROPHILS % (AUTO) 39.7 %; PLT - PLATELET COUNT 234 10^3/uL (130-450); RED BLOOD COUNT 4.92 10^6/uL (4.20-5.40); RED CELL DISTRIBUTION WIDTH 13.8 % (12.0-15.0); WHITE BLOOD COUNT 8.1 x10^3/uL (4.8-10.8)
[2017-07-15 13:17] LABS: ALBUMIN 4.6 g/dL (3.2-5.5); ALBUMIN/GLOBULIN RATIO 1.8 (1.0-2.2); ALKALINE PHOSPHATASE 71 IU/L (42-121); ALT ALANINE AMINOTRANSFERASE 14 IU/L (10-60); AST ASPARTATE AMINOTRANSFERASE 18 IU/L (10-42); BILIRUBIN,TOTAL 0.8 mg/dL (0.2-1.0); BUN - BLOOD UREA NITROGEN 16 mg/dL (6-20); CALCIUM 9.4 mg/dL (8.5-10.3); CARBON DIOXIDE - CO2 26 mmol/L (21-32); CHLORIDE 100 mmol/L (101-111); CHOL/HDL RATIO 2.6 (<4.4); CHOLESTEROL 246 mg/dL; CREATININE 0.8 mg/dL (0.4-1.0); GFR - MDRD 68 (>89); GLUCOSE 87 mg/dL (70-100); HDL CHOLESTEROL 93 mg/dL; LDL CHOLESTEROL,CALCULATED 135 mg/dL; LDL/HDL RATIO 1.5 (<4.4); SODIUM 136 mmol/L (135-145); TOTAL PROTEIN 7.2 g/dL (6.7-8.2); VLDL CHOLESTEROL 18 mg/dL
== END 2017-07-15 09:01 | disposition home or self-care (01) ==
LOC: LAB.R 09:00
PROVIDERS: ATTEND Internal Medicine
DX: I10 Essential (primary) hypertension (principal); E03.9 Hypothyroidism, unspecified; E78.5 Hyperlipidemia, unspecified; M81.0 Age-related osteoporosis without current pathological fracture
CPT/HCPCS: 80053; 80061; 82306; 83721; 84443; 85025